=== PATIENT | female | born 1950 | race Caucasian/White ===

== ENCOUNTER 2020-10-18 14:43 | Inpatient (IN) ==
[2020-10-18] MEDS ORDERED: *HR* LORazepam Oral Conc 2 MG/ML SL PRN (16:59)
[2020-10-18] MEDS ORDERED: Acetaminophen 650 MG RECTAL SUPP RC PRN (16:59)
[2020-10-18] MEDS ORDERED: polyethylene glycoL 3350 17 GM POWD.PACK PO PRN (16:59)
[2020-10-18] MEDS ORDERED: Morphine Sulfate Oral CONC 10 MG/0.5 ML ORAL.SYG SL PRN (16:59)
[2020-10-18] MEDS ORDERED: Hyoscyamine SL 0.125 MG TAB.SUBL PO PRN (16:59)
[2020-10-18] MEDS ORDERED: Bisacodyl 10 MG RECTAL SUPPOSITORY RC PRN (16:59)
[2020-10-18] MEDS ORDERED: Acetaminophen 325 MG TABLET PO PRN (16:59)
[2020-10-18] MEDS: Haloperidol Oral Conc 10 MG/5 ML UDC PO SCH (19:28)
[2020-10-19] MEDS: Haloperidol Oral Conc 10 MG/5 ML UDC PO SCH ×5 (00:12→23:02)
[2020-10-19] MEDS: Latanoprost 2.5 ML BOTTLE BOTH EYES SCH (20:49)
[2020-10-20] MEDS: Haloperidol Oral Conc 10 MG/5 ML UDC PO SCH ×4 (05:29→22:54)
[2020-10-20] MEDS: Latanoprost 2.5 ML BOTTLE BOTH EYES SCH (20:53)
[2020-10-21] MEDS: Haloperidol Oral Conc 10 MG/5 ML UDC PO SCH ×4 (04:43→22:13)
[2020-10-21] MEDS: Latanoprost 2.5 ML BOTTLE BOTH EYES SCH (22:13)
[2020-10-22] MEDS: Haloperidol Oral Conc 10 MG/5 ML UDC PO SCH ×4 (04:46→22:02)
[2020-10-22 19:08] VITALS: RESP 16; TEMP 98
[2020-10-22] MEDS: Latanoprost 2.5 ML BOTTLE BOTH EYES SCH (22:05)
[2020-10-23] MEDS: Haloperidol Oral Conc 10 MG/5 ML UDC PO SCH ×2 (04:58→12:11)
[2020-10-23 07:41] VITALS: BP 90/64; PULSE 107; O2SAT 97
== END 2020-10-23 14:20 | disposition hospice, home (50) | DRG 951 ==
LOC: INPGRE 14:44
PROVIDERS: ADMIT Family Medicine; ATTEND Family Medicine

== ENCOUNTER 2020-11-17 14:23 | Inpatient (IN) ==
[2020-11-19] MEDS ORDERED: *HR* LORazepam Oral Conc 2 MG/ML SL PRN (12:49)
[2020-11-19] MEDS ORDERED: Acetaminophen 650 MG RECTAL SUPP RC PRN (12:49)
[2020-11-19] MEDS ORDERED: Bisacodyl 10 MG RECTAL SUPPOSITORY RC PRN (12:49)
[2020-11-19] MEDS ORDERED: polyethylene glycoL 3350 17 GM POWD.PACK PO PRN (12:49)
[2020-11-19] MEDS ORDERED: Haloperidol Oral Conc 10 MG/5 ML UDC PO PRN (12:49)
[2020-11-19] MEDS ORDERED: Acetaminophen 325 MG TABLET PO PRN (12:49)
[2020-11-19] MEDS ORDERED: Hyoscyamine SL 0.125 MG TAB.SUBL PO PRN (12:49)
[2020-11-19] MEDS: Latanoprost 2.5 ML BOTTLE BOTH EYES SCH (20:35)
[2020-11-20] MEDS: Latanoprost 2.5 ML BOTTLE BOTH EYES SCH (20:56)
[2020-11-20] MEDS: Morphine Sulfate Oral CONC 10 MG/0.5 ML ORAL.SYG SL PRN (21:07)
[2020-11-21] MEDS: Morphine Sulfate Oral CONC 10 MG/0.5 ML ORAL.SYG SL PRN (18:04)
[2020-11-21] MEDS: Latanoprost 2.5 ML BOTTLE BOTH EYES SCH (21:45)
[2020-11-22] MEDS: Morphine Sulfate Oral CONC 10 MG/0.5 ML ORAL.SYG SL PRN (04:35)
[2020-11-22 09:28] VITALS: O2SAT 91
[2020-11-23] MEDS: Morphine Sulfate Oral CONC 10 MG/0.5 ML ORAL.SYG SL PRN ×4 (00:17→13:37)
[2020-11-23] MEDS: Latanoprost 2.5 ML BOTTLE BOTH EYES SCH (00:36)
[2020-11-23 07:26] VITALS: BP 123/84; PULSE 105; RESP 20; TEMP 97.5
[2020-11-23] MEDS ORDERED: Morphine Sulfate Oral CONC 10 MG/0.5 ML ORAL.SYG SL PRN (12:35)
== END 2020-11-23 13:50 | disposition hospice, home (50) | DRG 951 ==
LOC: INPGRE 11-19 11:26
PROVIDERS: ADMIT Family Medicine; ATTEND Family Medicine